=== PATIENT | male | born 1970 | race Caucasian/White ===

== ENCOUNTER → 2016-06-06 | Outpatient (CLI) | payer OTHER, MEDICARE, MEDICAID ==
--- NOTE | 2016-06-06 13:55 | REP ---
LEFT KNEE SERIES: Six views left knee performed. There is no fracture or dislocation. There is mild diffuse joint space narrowing. There is spurring of the lateral patellar facet. IMPRESSION: Mild degenerative changes. No fracture or dislocation. Signed by Niels Trinh MD 06/06/2016 04:43 P
== END ==
LOC: M LRY 12:31
PROVIDERS: ATTEND Nurse Practitioner Family
DX: S89.92XA Unspecified injury of left lower leg, initial encounter (principal); X58.XXXA Exposure to other specified factors, initial encounter; Y92.89 Other specified places as the place of occurrence of the external cause

== ENCOUNTER → 2017-02-26 | Outpatient (REF) | payer MEDICARE, MEDICAID ==
[2017-02-26 12:44] LABS: BACTERIA, URINE NONE SEEN; HYALINE CAST, URINE NONE SEEN /lpf (0-1); MICROSCOPIC EXAM PERFORMED; RBC, URINE 0-1 /hpf (0-3); SQUAMOUS EPITHELIAL CELL URINE NONE SEEN /hpf (SMALL AMT); WBC, URINE 0-1 /hpf (0-3)
== END ==
LOC: M LAB REF 11:32
PROVIDERS: ATTEND Nurse Practitioner Adult Health
DX: Z11.59 Encounter for screening for other viral diseases (principal); Z79.899 Other long term (current) drug therapy

== ENCOUNTER → 2018-10-05 | Outpatient (REF) | LOC: M LAB 10:05 ==